=== PATIENT | male | born 1980 | race Caucasian/White ===

== ENCOUNTER → 2016-11-22 | Outpatient (CLI) | payer OTHER ==
--- NOTE | 2016-11-22 22:10 | MR ---
EXAMINATION TYPE: MR lumbar spine wo con DATE OF EXAM: 11/22/2016 8:33 AM COMPARISON: NONE HISTORY: 35-year-old male with lumbago, back pain TECHNIQUE: Multiplanar, multisequence images of the lumbar spine were acquired. FINDINGS: Vertebral body heights are preserved and alignment is maintained. No suspicious bone marrow replacement. Variable intervertebral disc desiccation and levels of mild disc space narrowing especially at T11-T1 2, L2-L4, and L5-S1. There are disc bulges and posterior annular fissure noted at L5-S1 that has a le ft intraforaminal location. Additional small posterior annular fissure at L2-L3. There is a component of congenital spinal canal stenosis in the mid lumbar spine with AP canal dimens ion of 1.1 cm. Facet arthropathy in the mid to lower lumbar spine. Conus medullaris is normal. At T11-T12, there is disc bulge mildly narrowing the spinal canal without jane canal compromise or s ignificant neuroforaminal stenosis. At T12-L1, no spinal canal or foraminal stenosis. At L1-L2, no spinal canal or neuroforaminal stenosis. At L2-L3, there is disc bulge accentuating the mild congenital spinal canal stenosis. Small posterior annular fissure here. There is interval encroachment onto the bilateral inferior neural foramina. At L3-L4, minimal bulge with facet degenerative change. Underlying mild congenital canal narrowing wi thout significant neural foraminal stenosis. At L4-L5, mild disc bulge with facet degenerative change. There is mild congenital canal narrowing wi thout significant neuroforaminal stenosis. At L5-S1, there is a left paracentral/left intraforaminal broad-based disc protrusion with annular fi ssure. This abuts the traversing left S1 nerve root and minimally encroaches onto the left inferior n euroforamen. No significant spinal canal and neuroforaminal stenosis. Query ectopic pelvic kidney. Otherwise, no prevertebral or paravertebral soft tissue abnormality seen . IMPRESSION: 1. Scattered mild to moderate degenerative disc disease and mild facet arthropathy. 2. There is a mild congenital spinal canal stenosis within the mid lumbar spine further accentuated b y bulging disc especially at L2-L3. There is a posterior annular fissure noted at this level as well. No jane canal compromise. 3. A left intraforaminal disc herniation at L5-S1 shows an annular fissure and abuts the traversing l eft S1 nerve root. Correlate for radicular symptoms. This minimally encroaches onto the inferior left neural foramen as well.
== END | disposition home or self-care (01) ==
LOC: RADMRIMAIN 08:01
PROVIDERS: ATTEND Psychiatry & Neurology Neurology
DX: M51.27 Other intervertebral disc displacement, lumbosacral region (principal); M51.36 Other intervertebral disc degeneration, lumbar region; M46.86 Other specified inflammatory spondylopathies, lumbar region
CPT/HCPCS: 72148

== ENCOUNTER → 2016-12-12 | Outpatient (CLI) | payer BC, OTHER ==
[2016-12-12 13:30] VITALS: BP 177/103; PULSE 16; RESP 16; TEMP 98.7
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
== END ==
LOC: PNWHC3 12:55
PROVIDERS: ATTEND Specialist
DX: M51.16 Intervertebral disc disorders with radiculopathy, lumbar region (principal); M46.86 Other specified inflammatory spondylopathies, lumbar region; M50.10 Cervical disc disorder with radiculopathy, unspecified cervical region; M47.22 Other spondylosis with radiculopathy, cervical region; M46.82 Other specified inflammatory spondylopathies, cervical region; Z87.891 Personal history of nicotine dependence; Z79.899 Other long term (current) drug therapy
CPT/HCPCS: 99201

== ENCOUNTER → 2017-01-09 | Outpatient (CLI) | payer OTHER ==
[2017-01-09 15:28] VITALS: BP 129/82; PULSE 92; RESP 16; TEMP 97.8
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
== END | disposition home or self-care (01) ==
LOC: PNWHC3 14:41
PROVIDERS: ATTEND Specialist
DX: M51.36 Other intervertebral disc degeneration, lumbar region (principal); M47.816 Spondylosis without myelopathy or radiculopathy, lumbar region; M46.86 Other specified inflammatory spondylopathies, lumbar region; F17.200 Nicotine dependence, unspecified, uncomplicated
CPT/HCPCS: 99211

== ENCOUNTER 2017-01-24 07:44 | Day surgery (SDC) | payer OTHER ==
[2017-01-23 08:38] VITALS: BMI 37.5
[~2017-01-24 07:44] MED LIST: LIDOCAINE 1% 20 ML VIAL (10MG/ML) FOR IV START INTRADERMA ONE
[2017-01-24] MEDS ORDERED: LACTATED RINGERS 1,000 ML IV ONE (08:00)
[2017-01-24 08:22] VITALS: RESP 16; TEMP 97.6
[2017-01-24] MEDS ORDERED: MIDAZOLAM 2 MG/2 ML VIAL ONE (08:50)
[2017-01-24] MEDS ORDERED: fentaNYL (PF) 50 MCG/ML 2 ML AMP ONE (08:50)
[2017-01-24] MEDS ORDERED: TRIAMCINOLONE ACETONIDE 40 MG/ML 1 ML VIAL ONE (08:50)
[2017-01-24] MEDS ORDERED: IOHEXOL 180 MG/ML 1 ML ML ONE (08:50)
--- NOTE | 2017-01-24 09:07 | P.PCN ---
Date of Procedure: 01/24/17 Procedure(s) Performed: PREOPERATIVE DIAGNOSIS: 1- Lumbar Degenerative Disc Diseases 2-Lumbar spondylosis with Facet arthropathy without myelopathy POSTOPERATIVE DIAGNOSIS: 1-Lumber Degenerative Disc Diseases 2-Lumbar spondylosis with Facet arthropathy without myelopathy PROCEDURE 1. Lumbar epidural steroid injection under fluoroscopic guidance at the L5-S1 level. 2. Lumbar epidurogram. ANESTHESIA: Local with 1% lidocaine 3 ml and IV sedation with Versed 2 mg , and fentanyle 100 Mcg EBL: Minimal PROCEDURE INDICATION: The patient with low back pain and radiculitis symptoms unresponsive to conservative treatment. Fluoroscopy was used to optimize visualization of the needle placement and to maximize safety. PROCEDURE DESCRIPTION / TECHNIQUE: The patient was seen and identified in the preoperative area. Risks, benefits , complications including but not limited to infections ,bleeding ,allergic reaction to the medications ,nerve damage and not complete pain releife , and alternatives were discussed with the patient. The patient agreed to proceed with the procedure and signed the consent. IV was started, and vital signs were stable. Patient was taken to the OR and time out was completed. The patient was placed in the prone position on procedure table and a pillow was placed under the abdomen to reduce lumbar lordosis. The lumbosacral area was prepped and draped in the usual sterile fashion.ere closely monitored during the procedure. Conscious sedation was used during the procedure to decrease patients anxiety. Vital signs was monitered during the entire procedure. Using anterior-posterior fluoroscopy, the L5-S1 interlaminar space was identified and the skin over this site was marked and then infiltrated with 1% lidocaine subcutaneously. Subsequently, a 20-gauge Tuohy epidural needle was inserted and advanced toward the epidural space using the ``Loss of resistance technique and guided by AP and lateral fluoroscopy. The correct needle position in the epidural space was verified with the injection of 2 mL of the water soluble contrast dye Omnipaque 180 contrast and observing an excellent epidurogram with the epidural spread of the dye, after negative aspiration for blood and CSF and in the absence of paresthesias. Again after negative aspiration, a 6 ml mixture containing 80 mg of Kenalog and 2 ml of preservative free Normal Saline, and 2 ml of preservative free lidocaine 1% solution was injected and a washout of epidurogram was seen. Needle was withdrawn intact, skin was cleansed, and bandages were applied. COMPLICATIONS: None DISPOSITION / PLANS: The patient was placed in a supine position and transferred to the recovery area in a stable condition for observation. There was no evidence of lower extremity motor or sensory deficit after the procedure. Patient was discharged from the recovery room after meeting discharge criteria. Home discharge instructions were given to the patient by the staff. The patient was reexamined prior to discharge. The patient will schedule a follow up in the clinic in 2-4 weeks.
[2017-01-24] MEDS ORDERED: IV FLUID CONTINUATION 1,000 ML IV ONE (09:21)
[2017-01-24 09:41] VITALS: BP 122/74; PULSE 72
--- NOTE | 2017-01-24 10:47 | FL ---
EXAMINATION TYPE: FL guided pain mgmt statistic DATE OF EXAM: 01/24/2017 9:08 AM FLUOROSCOPY Fluoroscopy time of 1 seconds was used during lumbar epidural injection. 1 image/s document/s the pr lalo.
== END 2017-01-24 09:43 | disposition home or self-care (01) ==
LOC: ORPAIN 07:44
PROVIDERS: ATTEND Specialist
DX: M51.36 Other intervertebral disc degeneration, lumbar region (principal); M47.816 Spondylosis without myelopathy or radiculopathy, lumbar region; M46.96 Unspecified inflammatory spondylopathy, lumbar region
CPT/HCPCS: 62323; J2250; J3301; Q9965; J3010

== ENCOUNTER → 2017-04-02 | Outpatient (CLI) | payer OTHER ==
[2017-04-02 12:57] VITALS: BP 161/87; PULSE 94; RESP 16; TEMP 98.4
--- NOTE | 2017-04-02 13:21 | P.PN ---
Progress Note - Text Patient returns for followup for chronic back pain with radiation to left lateral leg and right groin. Patient recently underwent LESI #1 with 3-4 days' relief. Patient continues on [place]/Robaxin/Lyrica/Motrin medications for pain with some relief, but states that Flexeril was better for his pain. Patient denies adverse drug effects from medications. Today, pt denies new-onset weakness, bowel/bladder incontinence, or any other signs or symptoms of cauda equina syndrome. There are no signs of acute intoxication, and no indications of medication diversion or overuse. In addition to above, 13-point review of systems is also negative for chest pain , shortness of breath, changes in vision, changes in hearing, new onset weakness , abdominal pain, diarrhea, extreme fatigue, malaise, fever, skin changes, homicidal or suicidal ideation, or bowel or bladder incontinence. Vital Signs: Reviewed in EMR Gen: WDWN, AAOx3, NAD HEENT: NCAT, EOMI, hearing grossly normal Pulm: resp unlabored Abd: soft, NT, ND Neck: supple, trachea midline ROM in flexion lumbar spine: reduced ROM in extension lumbar spine: reduced Lumbar paravertebral tenderness: + Facet loading: + bilateral, L > R SI joint tenderness: + bilateral Michael's test: + R > L Straight leg raise: neg Neuro: CN II-XII grossly intact, muscle strength lower extremities PRESERVED Imaging: Reviewed in EMR Assessment: 1. sacroiliitis 2. lumbar spondylosis without myelopathy 3. lumbar radiculopathy Plan: 1. Explanation: Opioid and psychological risk scores were reviewed. Diagnoses , prognoses, and multiple treatment options including but not limited to physical therapy, interventional therapies, adjuvant medical therapies, narcotic medication therapies, and surgery were discussed with the patient and all questions were answered to the patient's satisfaction. 2. Opioid agreement: Patient has previously signed narcotic agreement, and was orally counseled to not overuse, abuse, divert, or cell medications, and to take them as prescribed by only 1 healthcare provider. The patient was also counseled to store opioid medications in a safe and preferably locked location. Patient was also counseled against driving or operating heavy equipment while using narcotic medications and also to not use alcohol or any illicit or recreational drugs. The patient verbalized understanding that lack of compliance with any of the above and likely result in failure to renew narcotic prescriptions, possible discharge from the clinic, and possible legal ramifications thereafter if indicated. 3. Counseling: The patient was counseled extensively on BODY MASS INDEX, EXERCISE. Specifically, the patient was instructed regarding the importance of weight control, and exercise in the context of both chronic pain and overall health. 4. Procedures: LESI #2 5. Consultations: None 6. Investigations: UDS today 7. Medications: [place] #120 with no refill, Flexeril 10 mg #60, Lyrica 150 mg # 90, Motrin 800 mg #90 with one refill 8. Disposition: f/u for LESI #2; told patient we are planning to decrease [place] to #90 over the next few months with LESI interventions; f/u final UDS PQRS measures: 1-Patient's medications are documented in the chart. 2-Tobacco use is negative 3-Patient has not had a pneumococcal vaccine. 4-Advanced care planning discussed, patient unable to give. 5-Opioid contract signed with the patient. 6-Pain positive, follow-up visit or procedure scheduled 7-Patient's blood pressure measured and documented, and patient will follow up with the primary care due to hypertension. 8-Patient's weight was measured, and body mass index ABOVE the normal limits, and counseling was done. Patient instructed to follow up with PCP. 9-Patient WAS NOT identified as an unhealthy alcohol user.
== END | disposition home or self-care (01) ==
LOC: PNWHC3 12:16
PROVIDERS: ATTEND Anesthesiology
DX: M46.1 Sacroiliitis, not elsewhere classified (principal); M47.816 Spondylosis without myelopathy or radiculopathy, lumbar region; M54.12 Radiculopathy, cervical region; Z79.891 Long term (current) use of opiate analgesic; Z79.899 Other long term (current) drug therapy; I10 Essential (primary) hypertension
CPT/HCPCS: 80356; 99211

== ENCOUNTER → 2020-06-21 | Outpatient (CLI) | payer OTHER ==
--- NOTE | 2020-06-22 03:59 | MR ---
EXAMINATION TYPE: MR lumbar spine wo con DATE OF EXAM: 06/21/2020 COMPARISON: 11/22/2016 HISTORY: Left sided hearing loss Multiplanar multiecho imaging of the lumbar spine was performed without contrast. The lumbar vertebra have fairly normal alignment. There is degenerative mild narrowing and decreased signal in the disks at L2-3 and L3-4 and L5-S1. There is no spinal stenosis. There is posterior left- sided L5-S1 disc herniation impinging on the lateral recess. There is a mild posterior concentric dis c herniation at L2-3. There is developmentally adequate spinal canal. There is no significant impinge ment on the neural elements. There is no lumbar spine paraspinal mass. The posterior elements are int act. The lumbar neural foramina are fairly well-maintained. IMPRESSION: Spondylotic changes as above. Posterior left side L5-S1 disc herniation is slightly increased in size compared to old MR scan. Mild posterior concentric disc bulging or herniation at L2-3 unchanged. No spinal stenosis.
== END | disposition home or self-care (01) ==
LOC: RADMRIMAIN 17:03
PROVIDERS: ATTEND Nurse Practitioner
DX: M47.816 Spondylosis without myelopathy or radiculopathy, lumbar region (principal); M51.26 Other intervertebral disc displacement, lumbar region; M51.27 Other intervertebral disc displacement, lumbosacral region
CPT/HCPCS: 72148